=== PATIENT | male | born 1950 | race Caucasian/White ===

== ENCOUNTER 2022-06-18 16:18 | Inpatient (IN) | payer OTHER, MEDICAID ==
[~2022-06-18] VITALS: Ht 182.9 cm; Wt 86.2 kg
[2022-06-18 16:30] VITALS: BP_SYST 100
--- NOTE | 2022-06-18 16:35 | NUR ---
BIB BLS WITH C/C OF S/P MECHANICAL FALL AT NURSING STATION FROM [facility]. PT A/O X 2. INFORMED THAT ORIENTATION IS BASELINE. NAD NOTED. VSS, AFEBRILE.
--- NOTE | 2022-06-18 16:44 | NUR ---
DR. SALAS EXAMINED PT IN [facility].
[2022-06-18] MEDS ORDERED: NACL 0.9% 1,000 ML IV ONE (22:30)
[2022-06-18] MEDS ORDERED: DIPHTH,PERTUSS(ACELL),TET VAC 0.5 ML VIAL (Tdap) I.M. ONE (22:30)
[2022-06-18] MEDS ORDERED: LORazepam 2 MG/ML VIAL IVP ONE (23:00)
[2022-06-18 23:07] LABS: BASOPHILS # (AUTO) 0.1 K/uL (0.0-0.2); BASOPHILS % (AUTO) 1.1 % (0.0-2.0); EOSINOPHILS # (AUTO) 0.3 K/uL (0.0-0.4); EOSINOPHILS % (AUTO) 2.5 % (0.0-4.0); HEMATOCRIT 30.5 % (36-54); HEMOGLOBIN 9.7 g/dL (14.0-18.0); LYMPHOCYTES # (AUTO) 2.4 K/uL (1.0-5.5); LYMPHOCYTES % (AUTO) 19.3 % (20.5-51.5); MEAN CORPUSCULAR HEMOGLOBIN 22 pg (27-31); MEAN CORPUSCULAR HGB CONC 32 % (32-36); MEAN CORPUSCULAR VOLUME 69 fL (79.0-98.0); MONOCYTES # (AUTO) 1.3 K/uL (0.0-1.0); MONOCYTES % (AUTO) 10.2 % (1.7-9.3); NEUTROPHILS # (AUTO) 8.4 K/uL (1.8-7.7); NEUTROPHILS % (AUTO) 66.9 % (40.0-70.0); PLATELET COUNT (AUTO) 378 K/uL (130-430); RED BLOOD CELL COUNT(AUTO) 4.44 MIL/uL (4.2-6.2); RED CELL DISTRIBUTION WIDTH 16.4 % (9.0-15.0); WHITE BLOOD COUNT (AUTO) 12.6 K/uL (4.8-10.8)
[2022-06-18 23:33] LABS: ANION GAP 6 (5-15); CALCIUM 9.7 mg/dL (8.4-11.0); CHLORIDE 93 mmol/L (98-107); CREATININE 2.96 mg/dL (0.55-1.30); GLUCOSE 249 mg/dL (70-99); UREA NITROGEN, BLOOD 56 mg/dL (8-21)
[2022-06-18 23:45] LABS: ALANINE AMINOTRANSFERASE 27 U/L (12-78); ALBUMIN 3.4 g/dL (3.4-4.8); ASPARTATE AMINOTRANSFERASE 23 U/L (10-37); TOTAL BILIRUBIN 0.6 mg/dL (0.0-1.0)
[2022-06-18 23:53] LABS: GFR AFRICAN AMERICAN 27 mL/min (>90)
--- NOTE | 2022-06-19 00:15 | NUR ---
PT IS AA&OX1-2. PLACED IN BED 6. CONNECTED TO PATCHING MACHINE OPERATOR. NOTED W/ LACERATION ON R MID FOREHEAD. VSS. SEIZURE PRECAUTIONS IMPLEMENTED. SAFE & HAZARD FREE ENVIRONMENT PROVIDED.
--- NOTE | 2022-06-19 00:26 | NUR ---
# 20 gauge angiocath placed to LFA . Use of asceptic technique. Opsite placed over site. Blood return noted. Flushed with 10 cc of normal saline. No evidence of infiltration noted. Patient tolerated well.
--- NOTE | 2022-06-19 01:48 | NUR ---
COVID/INFLUENZA SWAB COLLECTED AND SENT TO LAB.
--- NOTE | 2022-06-19 04:13 | NUR ---
Admit bed requested Patient will be admitted to care of . Admitted to TELE unit. Diagnosis POSSIBLE NEW SEIZURE Inpatient Yes Observation No Orientation concerns or request close to nursing station No Covid Status NEG On vent or bipap NO Isolation requirements NO Needs a sitter NO From Home [facility] Requires Dialysis NO Med Rec Completed YES
[2022-06-19] MEDS ORDERED: EFF37 PO (04:25)
[2022-06-19] MEDS ORDERED: LINA5TAB2 PO (04:25)
[2022-06-19] MEDS ORDERED: NEU300 PO (04:25)
[2022-06-19] MEDS ORDERED: ASPI-1393 PO (04:25)
[2022-06-19] MEDS ORDERED: LIP20 PO (04:25)
[2022-06-19] MEDS ORDERED: NOR10 PO (04:25)
[2022-06-19] MEDS ORDERED: GLIP5TAB26 PO (04:25)
[2022-06-19] MEDS ORDERED: ARIP5TAB10 PO (04:25)
[2022-06-19] MEDS ORDERED: INSU100V11 SQ (04:25)
[2022-06-19] MEDS ORDERED: EPIN0.1519 IM (04:25)
[2022-06-19] MEDS ORDERED: SER100 PO (04:25)
[2022-06-19] MEDS ORDERED: MOME45CR17 TP (04:25)
--- NOTE | 2022-06-19 04:25 | NUR ---
Medication reconciliation completed with information provided by [facility]. Any prior medication reconciliation on file was reviewed and corrected.
--- NOTE | 2022-06-19 05:19 | NUR ---
Urine specimen collected and SENT TO LAB
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
[2022-06-19] MEDS ORDERED: 0.45% NACL 1,000 ML IV SCH (06:00)
--- NOTE | 2022-06-19 07:11 | NUR ---
REPORT GIVEN ISABELLE YANCEY TO ASSUME CARE.
--- NOTE | 2022-06-19 07:12 | NUR ---
Received report from ISABELLE Batista. Patient appears in no acute distress at this time, VSS. Care to be given as ordered by provider.
[2022-06-19 07:24] LABS: BILIRUBIN,URINE NEGATIVE (NEGATIVE); BLOOD, URINE 2+ (NEGATIVE); CLARITY/URINE TURBID (CLEAR); COLOR,URINE YELLOW (YELLOW); GLUCOSE,URINE 2+ (NEGATIVE); KETONES,URINE NEGATIVE (NEGATIVE); LEUKOCYTE ESTERASE ,URINE 3+ (NEGATIVE); NITRITE, URINE NEGATIVE (NEGATIVE); PROTEIN URINE 2+ (NEGATIVE); UROBILINOGEN,URINE 0.2 (0.2-1.0)
[2022-06-19 07:38] LABS: BACTERIA,URINE MANY /HPF (None Seen); RBC,URINE >100 /HPF (0-3); WBC,URINE >100 /HPF (0-3)
--- NOTE | 2022-06-19 12:35 | NUR ---
MRSA SWAB COLLECTED AND SENT TO LAB.
[2022-06-19] MEDS ORDERED: MOMETASONE FUROATE TP SCH (13:45)
[2022-06-19] MEDS ORDERED: ACETAMINOPHEN 325 MG TABLET PO PRN (14:00)
[2022-06-19] MEDS ORDERED: amLODIPine BESYLATE 10 MG TABLET PO ONE (15:30)
[2022-06-19] MEDS ORDERED: ASPIRIN 81 MG TABLET(ECOTRIN) PO ONE (15:30)
[2022-06-19] MEDS ORDERED: ARIPiprazole 5 MG TAB PO ONE (15:30)
[2022-06-19] MEDS: KCL 20 mEq in NS 1000 mL 1,000 ML IV SCH (15:39)
[2022-06-19 16:50] VITALS: BP_SYST 123
--- NOTE | 2022-06-19 16:50 | NUR ---
CONSULTATION PAGED REASON FOR CONSULTATION:SEIZURES WAS CONSULT CALLED?Y PERSON WHO WAS NOTIFIED:TEXT MESSAGED MARCIA OLGUIN CONSULTING PHYSICIAN:MARCIA OLGUIN JUSTICE [address] JUDGE SPECIALTY:NEURO [address]ICE [employer] JUDGE PHONE NUMBER:[phone] REQUESTING PHYSICIAN:AGNES MATSON
--- NOTE | 2022-06-19 16:58 | NUR ---
Patient will be admitted to care of DR. ALEGRE. Admitted to MST unit. Will go to room 116A. Belongings list completed. Complete and up to date summary report printed. SBAR report to be given at bedside with opportunity for questions.
[2022-06-19 17:00] VITALS: BP_SYST 123
--- NOTE | 2022-06-19 17:00 | NUR ---
ADMIT TO UNIT Patient admitted to Tele unit. Patient is ambulatory with assist. Aox2. Confused/ forgetful. No ss of distress noted. Breathing is even and nonlabored, on room air. No facial grimace noted. Patient has a bout of emesis upon arrival. Vital signs obtained, as documented. IV to L AC 20 G, patent. IVF running. Oriented patient to room and educated on fall precautions in safety. Bed is locked, alarm on, and at lowest position. Call light within reach.
[2022-06-19] MEDS: INSULIN REGULAR, HUMAN 100 UNITS/ML, 3 ML VIAL (humuLIN R) SUBCUT PRN ×2 (18:00→23:03)
[2022-06-19] MEDS ORDERED: ONDANSETRON HCL 4 MG/2 ML VIAL IVP PRN (18:30)
--- NOTE | 2022-06-19 19:39 | NUR ---
CLOSING NOTES PATIENT IS RESTING, IN BED, EYES CLOSED. NO SS OF DISTRESS NOTED. BREATHING IS EVEN AND NONLABORED, ON ROOM AIR. NO FACIAL GRIMACE NOTED. IV PATENT, IVF RUNNING. ALL NEEDS MET. BED IS LOCKED, ALARM ON, AND AT LOWEST POSITION. CALL LIGHT WITHIN REACH. REPORT GIVEN AT BEDSIDE TO ISBAELLE HOLLAND.
[2022-06-19 20:00] VITALS: BP_SYST 100
[2022-06-19] MEDS ORDERED: HALOPERIDOL LACTATE 5 MG/ML VIAL IM ONE (22:45)
[2022-06-19] MEDS: QUEtiapine FUMARATE 100 MG TABLET PO SCH (22:58)
[2022-06-19] MEDS: GABAPENTIN 300 MG CAPSULE PO SCH (22:58)
[2022-06-19] MEDS: ENOXAPARIN SODIUM 30 MG/0.3 ML SYRINGE SUBCUT SCH (22:59)
[2022-06-19] MEDS: INSULIN GLARGINE 100 UNITS/ML, 10 ML VIAL SQ SCH (23:01)
[2022-06-19] MEDS: PANTOPRAZOLE SODIUM 40 MG/VIAL (PROTONIX) IVP SCH (23:35)
[2022-06-20] VITALS: BP_SYST 114
--- NOTE | 2022-06-20 06:59 | NUR ---
PATIENT CURRENTLY IN BED RESTING. PATIENT HAD A FALL AT 2153, MD NOTIFIED, PERSON TO NOTIFY IN CHART WAS CALLED ANSWERING MACHINE OFFERED TO LEAVE A MESSAGE BUT DID NOT TAKE MESSAGE. THE MESSAGE ON THE MACHINE STATED THEY WERE AVAILABLE [phone]. PATIENT HAD NO NOTED INJURIES FROM FALL AND WENT TO BED THERE AFTER TAKING HIS HS MEDICATIONS.
[2022-06-20 07:00] LABS: BASOPHILS # (AUTO) 0.1 K/uL (0.0-0.2); BASOPHILS % (AUTO) 1.7 % (0.0-2.0); EOSINOPHILS # (AUTO) 0.5 K/uL (0.0-0.4); EOSINOPHILS % (AUTO) 6.5 % (0.0-4.0); HEMATOCRIT 27.6 % (36-54); HEMOGLOBIN 8.9 g/dL (14.0-18.0); LYMPHOCYTES # (AUTO) 2.6 K/uL (1.0-5.5); LYMPHOCYTES % (AUTO) 33.1 % (20.5-51.5); MEAN CORPUSCULAR HEMOGLOBIN 22 pg (27-31); MEAN CORPUSCULAR HGB CONC 32 % (32-36); MEAN CORPUSCULAR VOLUME 69 fL (79.0-98.0); MONOCYTES # (AUTO) 0.8 K/uL (0.0-1.0); MONOCYTES % (AUTO) 10.6 % (1.7-9.3); NEUTROPHILS # (AUTO) 3.8 K/uL (1.8-7.7); NEUTROPHILS % (AUTO) 48.1 % (40.0-70.0); PLATELET COUNT (AUTO) 344 K/uL (130-430); RED BLOOD CELL COUNT(AUTO) 3.99 MIL/uL (4.2-6.2); RED CELL DISTRIBUTION WIDTH 16.3 % (9.0-15.0); WHITE BLOOD COUNT (AUTO) 7.9 K/uL (4.8-10.8)
[2022-06-20 07:12] LABS: CALCIUM 8.9 mg/dL (8.4-11.0); CREATININE 1.88 mg/dL (0.55-1.30)
[2022-06-20 08:00] VITALS: BP_SYST 117
[2022-06-20] MEDS: PANTOPRAZOLE SODIUM 40 MG/VIAL (PROTONIX) IVP SCH ×2 (09:32→21:19)
[2022-06-20] MEDS: ARIPiprazole 5 MG TAB PO SCH (09:32)
[2022-06-20] MEDS: ATORVASTATIN 20 MG TABLET PO SCH (09:32)
[2022-06-20] MEDS: ASPIRIN 81 MG TABLET(ECOTRIN) PO SCH (09:32)
[2022-06-20] MEDS: GABAPENTIN 300 MG CAPSULE PO SCH ×3 (09:33→21:19)
[2022-06-20] MEDS: amLODIPine BESYLATE 10 MG TABLET PO SCH (09:33)
[2022-06-20] MEDS: INSULIN GLARGINE 100 UNITS/ML, 10 ML VIAL SQ SCH ×2 (09:39→21:24)
[2022-06-20] MEDS: Effexor 37.5 MG TAB PO SCH (09:50)
[2022-06-20 11:22] VITALS: BP_SYST 99
[2022-06-20] MEDS ORDERED: POTASSIUM CHLORIDE 20 MEQ/PKT PACKET PO ONE (12:30)
[2022-06-20] MEDS: INSULIN REGULAR, HUMAN 100 UNITS/ML, 3 ML VIAL (humuLIN R) SUBCUT PRN ×3 (12:55→21:25)
[2022-06-20] MEDS: KCL 20 mEq in NS 1000 mL 1,000 ML IV SCH (14:09)
[2022-06-20 18:16] VITALS: BP_SYST 95
[2022-06-20 20:00] VITALS: BP_SYST 122
[2022-06-20] MEDS: QUEtiapine FUMARATE 100 MG TABLET PO SCH (21:19)
[2022-06-20] MEDS: MEGESTROL ACETATE 400 MG/10 ML UDC PO SCH (21:19)
[2022-06-20] MEDS: ENOXAPARIN SODIUM 30 MG/0.3 ML SYRINGE SUBCUT SCH (21:19)
[2022-06-21] VITALS: BP_SYST 126
[2022-06-21] MEDS: KCL 20 mEq in NS 1000 mL 1,000 ML IV SCH ×3 (03:33→18:09)
[2022-06-21] MEDS: CEFEPIME 1 GM in D5W 50 ML IV SCH ×2 (03:34→18:09)
--- NOTE | 2022-06-21 04:17 | NUR ---
PATIENT IN BED RESTING, EYES CLOSED, NO S/S OF PAIN OR DISTRESS NOTED AT THIS TIME. PATIENT VSS, R FA 22G PIV INTACT AND PATENT. PATIENT RECEIVING IVF AND IV ABT. PATIENT TOOK AND TOLERATED ALL HS MEDS. PATIENT USES URINAL STANDING AT BEDSIDE. PATIENT HAS NOT TRIED TO AMB IN ROOM DURING THIS SHIFT WITHOUT ASSIST. PATIENT STATED HE FELT BETTER TODAY THAN YESTERDAY. PATIENT IS MORE ALERT AND ORIENTED TODAY THAN YESTERDAY. PATIENT WOULD ONLY ANSWER HIS NAME AND YESTERDAY AND TODAY HE HAS ATTEMPTED TO VERBALIZED WHERE HE IS AND THE DATE.
[2022-06-21 06:52] LABS: BASOPHILS # (AUTO) 0.1 K/uL (0.0-0.2); BASOPHILS % (AUTO) 1.4 % (0.0-2.0); EOSINOPHILS # (AUTO) 0.4 K/uL (0.0-0.4); EOSINOPHILS % (AUTO) 5.8 % (0.0-4.0); HEMATOCRIT 26.8 % (36-54); HEMOGLOBIN 8.6 g/dL (14.0-18.0); LYMPHOCYTES # (AUTO) 1.7 K/uL (1.0-5.5); LYMPHOCYTES % (AUTO) 26.4 % (20.5-51.5); MEAN CORPUSCULAR HEMOGLOBIN 22 pg (27-31); MEAN CORPUSCULAR HGB CONC 32 % (32-36); MEAN CORPUSCULAR VOLUME 70 fL (79.0-98.0); MONOCYTES # (AUTO) 0.6 K/uL (0.0-1.0); MONOCYTES % (AUTO) 9.9 % (1.7-9.3); NEUTROPHILS # (AUTO) 3.7 K/uL (1.8-7.7); NEUTROPHILS % (AUTO) 56.5 % (40.0-70.0); PLATELET COUNT (AUTO) 292 K/uL (130-430); RED BLOOD CELL COUNT(AUTO) 3.84 MIL/uL (4.2-6.2); RED CELL DISTRIBUTION WIDTH 16.1 % (9.0-15.0); WHITE BLOOD COUNT (AUTO) 6.5 K/uL (4.8-10.8)
[2022-06-21 06:56] LABS: CALCIUM 8.6 mg/dL (8.4-11.0); CREATININE 1.63 mg/dL (0.55-1.30)
--- NOTE | 2022-06-21 07:07 | NUR ---
PATIENT IN BED RESTING. PATIENT HAS BEEN NPO SINCE MIDNIGHT FOR ABD US PER PREVIOUS NURSE REPORT. PATIENT BS 170 THIS MORNING, NO INSULIN COVERAGE GIVEN AT THIS TIME PATIENT IS NPO. THIS NURSE TO ENDORSE TO ON COMING NURSE.
[2022-06-21 08:00] VITALS: BP_SYST 127
--- NOTE | 2022-06-21 08:00 | NUR ---
AM NOTES KEPT NPO FOR ABDOMINAL ULTRASOUND TODAY, PATIENT VERY COOPERATIVE TO STAFF, RISK FOR FALL, KEPT A SAFE ENVIRONMENT TO PATIENT.
--- NOTE | 2022-06-21 10:00 | NUR ---
NOTES EEG AND ABDOMINAL ULTRASOUND DONE.
[2022-06-21] MEDS: MEGESTROL ACETATE 400 MG/10 ML UDC PO SCH ×2 (10:42→20:57)
[2022-06-21] MEDS: ASPIRIN 81 MG TABLET(ECOTRIN) PO SCH (10:43)
[2022-06-21] MEDS: GABAPENTIN 300 MG CAPSULE PO SCH ×3 (10:43→20:57)
[2022-06-21] MEDS: Effexor 37.5 MG TAB PO SCH (10:43)
[2022-06-21] MEDS: PANTOPRAZOLE SODIUM 40 MG/VIAL (PROTONIX) IVP SCH ×2 (10:46→20:58)
[2022-06-21] MEDS: ATORVASTATIN 20 MG TABLET PO SCH (10:47)
[2022-06-21] MEDS: INSULIN GLARGINE 100 UNITS/ML, 10 ML VIAL SQ SCH ×2 (10:50→21:16)
[2022-06-21] MEDS: amLODIPine BESYLATE 10 MG TABLET PO SCH (10:52)
[2022-06-21] MEDS: ARIPiprazole 5 MG TAB PO SCH (10:53)
[2022-06-21 11:52] VITALS: BP_SYST 115
--- NOTE | 2022-06-21 12:23 | NUR ---
Report received from ISABELLE Tineo for continuity of care. Patient stable condition.
--- NOTE | 2022-06-21 13:00 | NUR ---
NOTES REPORT GIVEN TO DIONNA FOR CONTINUATION OF CARE.
[2022-06-21 15:39] VITALS: BP_SYST 117
[2022-06-21] MEDS ORDERED: MECLIZINE HCL 25 MG TABLET (ANITVERT) PO ONE (17:45)
[2022-06-21] MEDS: FLUCONAZOLE 200 mg/ NS 100 ML IV SCH (18:33)
[2022-06-21] MEDS: INSULIN REGULAR, HUMAN 100 UNITS/ML, 3 ML VIAL (humuLIN R) SUBCUT PRN ×2 (18:40→21:17)
--- NOTE | 2022-06-21 19:47 | NUR ---
Patient stable throughout the shift. Report given to cnc machinist 2nd shift RN for continuity of care. Patient stable.
[2022-06-21 20:00] VITALS: BP_SYST 112
[2022-06-21] MEDS: MECLIZINE HCL 25 MG TABLET (ANITVERT) PO SCH (20:57)
[2022-06-21] MEDS: ENOXAPARIN SODIUM 30 MG/0.3 ML SYRINGE SUBCUT SCH (20:58)
[2022-06-21] MEDS: QUEtiapine FUMARATE 100 MG TABLET PO SCH (20:58)
[2022-06-22] VITALS: BP_SYST 124
[2022-06-22] MEDS: CEFEPIME 1 GM in D5W 50 ML IV SCH ×2 (03:07→17:43)
[2022-06-22] MEDS: INSULIN REGULAR, HUMAN 100 UNITS/ML, 3 ML VIAL (humuLIN R) SUBCUT PRN ×3 (06:49→21:29)
--- NOTE | 2022-06-22 08:18 | NUR ---
opening note received bedside sbar from PM shift nurse, patient stable no distress bed at low position call light in reach will cont to monitor as per orders.
[2022-06-22 09:02] VITALS: BP_SYST 108
[2022-06-22] MEDS: MEGESTROL ACETATE 400 MG/10 ML UDC PO SCH ×2 (10:38→21:19)
[2022-06-22] MEDS: ATORVASTATIN 20 MG TABLET PO SCH (10:38)
[2022-06-22] MEDS: Effexor 37.5 MG TAB PO SCH (10:38)
[2022-06-22] MEDS: GABAPENTIN 300 MG CAPSULE PO SCH ×3 (10:39→21:19)
[2022-06-22] MEDS: ARIPiprazole 5 MG TAB PO SCH (10:39)
[2022-06-22] MEDS: MECLIZINE HCL 25 MG TABLET (ANITVERT) PO SCH ×3 (10:39→21:19)
[2022-06-22] MEDS: ASPIRIN 81 MG TABLET(ECOTRIN) PO SCH (10:39)
[2022-06-22] MEDS: amLODIPine BESYLATE 10 MG TABLET PO SCH (10:40)
[2022-06-22] MEDS: INSULIN GLARGINE 100 UNITS/ML, 10 ML VIAL SQ SCH ×2 (10:49→21:26)
[2022-06-22] MEDS: KCL 20 mEq in NS 1000 mL 1,000 ML IV SCH (10:52)
--- NOTE | 2022-06-22 11:12 | NUR ---
Discharge Planning: [phone] DCP to follow up
[2022-06-22 12:00] VITALS: BP_SYST 115
[2022-06-22] MEDS: PANTOPRAZOLE SODIUM 40 MG/VIAL (PROTONIX) IVP SCH ×2 (12:56→21:20)
--- NOTE | 2022-06-22 13:11 | NUR ---
PATIENT REQUESTING DOUBLE FOOD PORTIONS WILL CALL DR BOBO
[2022-06-22 16:00] VITALS: BP_SYST 114
[2022-06-22] MEDS: FLUCONAZOLE 200 mg/ NS 100 ML IV SCH (17:38)
[2022-06-22 20:00] VITALS: BP_SYST 121
[2022-06-22] MEDS: ENOXAPARIN SODIUM 30 MG/0.3 ML SYRINGE SUBCUT SCH (21:19)
[2022-06-22] MEDS: QUEtiapine FUMARATE 100 MG TABLET PO SCH (21:19)
[2022-06-22 22:40] VITALS: BP_SYST 130
[2022-06-23] VITALS: BP_SYST 130
[2022-06-23] MEDS: KCL 20 mEq in NS 1000 mL 1,000 ML IV SCH (03:30)
[2022-06-23] MEDS: CEFEPIME 1 GM in D5W 50 ML IV SCH ×2 (03:30→14:40)
[2022-06-23] MEDS: INSULIN REGULAR, HUMAN 100 UNITS/ML, 3 ML VIAL (humuLIN R) SUBCUT PRN ×4 (06:22→21:43)
[2022-06-23 07:54] LABS: CALCIUM 8.6 mg/dL (8.4-11.0); CREATININE 1.48 mg/dL (0.55-1.30)
[2022-06-23 08:01] LABS: TOTAL IRON BIND. CAPACITY 340 ug/dL (250-450)
[2022-06-23 08:20] LABS: BASOPHILS # (AUTO) 0.1 K/uL (0.0-0.2); BASOPHILS % (AUTO) 1.1 % (0.0-2.0); EOSINOPHILS # (AUTO) 0.1 K/uL (0.0-0.4); EOSINOPHILS % (AUTO) 1.9 % (0.0-4.0); HEMOGLOBIN 8.6 g/dL (14.0-18.0); LYMPHOCYTES % (AUTO) 33.6 % (20.5-51.5); MEAN CORPUSCULAR HEMOGLOBIN 22 pg (27-31); MEAN CORPUSCULAR HGB CONC 32 % (32-36); MEAN CORPUSCULAR VOLUME 70 fL (79.0-98.0); MONOCYTES # (AUTO) 0.6 K/uL (0.0-1.0); MONOCYTES % (AUTO) 9.6 % (1.7-9.3); NEUTROPHILS # (AUTO) 3.2 K/uL (1.8-7.7); NEUTROPHILS % (AUTO) 53.8 % (40.0-70.0); PLATELET COUNT (AUTO) 307 K/uL (130-430); RED BLOOD CELL COUNT(AUTO) 3.86 MIL/uL (4.2-6.2)
[2022-06-23] MEDS: ARIPiprazole 5 MG TAB PO SCH (09:05)
[2022-06-23] MEDS: Effexor 37.5 MG TAB PO SCH (09:05)
[2022-06-23] MEDS: MECLIZINE HCL 25 MG TABLET (ANITVERT) PO SCH ×3 (09:05→21:39)
[2022-06-23] MEDS: GABAPENTIN 300 MG CAPSULE PO SCH ×3 (09:05→21:40)
[2022-06-23] MEDS: ASPIRIN 81 MG TABLET(ECOTRIN) PO SCH (09:06)
[2022-06-23] MEDS: MEGESTROL ACETATE 400 MG/10 ML UDC PO SCH ×2 (09:06→21:40)
[2022-06-23] MEDS: amLODIPine BESYLATE 10 MG TABLET PO SCH (09:06)
[2022-06-23] MEDS: PANTOPRAZOLE SODIUM 40 MG/VIAL (PROTONIX) IVP SCH ×2 (09:06→21:40)
[2022-06-23] MEDS: ATORVASTATIN 20 MG TABLET PO SCH (09:06)
[2022-06-23] MEDS: INSULIN GLARGINE 100 UNITS/ML, 10 ML VIAL SQ SCH ×2 (09:13→21:42)
[2022-06-23 09:43] LABS: RED CELL DISTRIBUTION WIDTH 16.3 % (9.0-15.0)
[2022-06-23 12:00] VITALS: BP_SYST 136
[2022-06-23 16:00] VITALS: BP_SYST 143
[2022-06-23] MEDS: FLUCONAZOLE 200 mg/ NS 100 ML IV SCH (18:28)
[2022-06-23 20:00] VITALS: BP_SYST 154
[2022-06-23] MEDS: QUEtiapine FUMARATE 100 MG TABLET PO SCH (21:40)
[2022-06-23] MEDS: ENOXAPARIN SODIUM 30 MG/0.3 ML SYRINGE SUBCUT SCH (21:49)
[2022-06-24 01:00] VITALS: BP_SYST 115
[2022-06-24] MEDS: CEFEPIME 1 GM in D5W 50 ML IV SCH ×2 (05:22→15:54)
[2022-06-24] MEDS: INSULIN REGULAR, HUMAN 100 UNITS/ML, 3 ML VIAL (humuLIN R) SUBCUT PRN ×4 (06:26→21:19)
[2022-06-24 08:00] VITALS: BP_SYST 129
--- NOTE | 2022-06-24 08:00 | NUR ---
RECEIVED PATIENT FROM PM NURSE, ALERT AND ORIENTED, ABLE TO VERBALIZE NEEDS, NO C/O PAIN OR DISCOMFORT, WILL ASSUME ALL CARE OF PATIENT AT THIS TIME
[2022-06-24 08:21] LABS: CALCIUM 8.8 mg/dL (8.4-11.0); CREATININE 1.57 mg/dL (0.55-1.30)
[2022-06-24 08:30] LABS: BASOPHILS # (AUTO) 0.1 K/uL (0.0-0.2); BASOPHILS % (AUTO) 1.1 % (0.0-2.0); EOSINOPHILS # (AUTO) 0.1 K/uL (0.0-0.4); EOSINOPHILS % (AUTO) 1.7 % (0.0-4.0); HEMATOCRIT 27.4 % (36-54); HEMOGLOBIN 8.8 g/dL (14.0-18.0); LYMPHOCYTES # (AUTO) 2.1 K/uL (1.0-5.5); LYMPHOCYTES % (AUTO) 30.2 % (20.5-51.5); MEAN CORPUSCULAR HEMOGLOBIN 22 pg (27-31); MEAN CORPUSCULAR HGB CONC 32 % (32-36); MEAN CORPUSCULAR VOLUME 69 fL (79.0-98.0); MONOCYTES # (AUTO) 0.7 K/uL (0.0-1.0); MONOCYTES % (AUTO) 9.7 % (1.7-9.3); NEUTROPHILS # (AUTO) 3.9 K/uL (1.8-7.7); NEUTROPHILS % (AUTO) 57.3 % (40.0-70.0); PLATELET COUNT (AUTO) 330 K/uL (130-430); RED BLOOD CELL COUNT(AUTO) 3.96 MIL/uL (4.2-6.2); RED CELL DISTRIBUTION WIDTH 16.4 % (9.0-15.0); WHITE BLOOD COUNT (AUTO) 6.8 K/uL (4.8-10.8)
[2022-06-24] MEDS: Effexor 37.5 MG TAB PO SCH (09:41)
[2022-06-24] MEDS: GABAPENTIN 300 MG CAPSULE PO SCH ×3 (09:42→21:13)
[2022-06-24] MEDS: ASPIRIN 81 MG TABLET(ECOTRIN) PO SCH (09:42)
[2022-06-24] MEDS: ATORVASTATIN 20 MG TABLET PO SCH (09:42)
[2022-06-24] MEDS: ARIPiprazole 5 MG TAB PO SCH (09:43)
[2022-06-24] MEDS: MECLIZINE HCL 25 MG TABLET (ANITVERT) PO SCH ×3 (09:43→21:13)
[2022-06-24] MEDS: PANTOPRAZOLE SODIUM 40 MG/VIAL (PROTONIX) IVP SCH ×2 (09:43→21:14)
[2022-06-24] MEDS: amLODIPine BESYLATE 10 MG TABLET PO SCH (09:43)
[2022-06-24] MEDS: INSULIN GLARGINE 100 UNITS/ML, 10 ML VIAL SQ SCH ×2 (09:52→21:22)
[2022-06-24] MEDS: MEGESTROL ACETATE 400 MG/10 ML UDC PO SCH ×2 (09:59→21:13)
[2022-06-24 12:00] VITALS: BP_SYST 130
[2022-06-24] MEDS: FLUCONAZOLE 200 mg/ NS 100 ML IV SCH (17:24)
[2022-06-24 18:16] VITALS: BP_SYST 132
[2022-06-24 20:00] VITALS: BP_SYST 159
[2022-06-24] MEDS ORDERED: SODIUM POLYSTYRENE SULFONATE 15 GM/60 ML UDBTL PO ONE (20:45)
[2022-06-24] MEDS: QUEtiapine FUMARATE 100 MG TABLET PO SCH (21:13)
[2022-06-24] MEDS: ENOXAPARIN SODIUM 30 MG/0.3 ML SYRINGE SUBCUT SCH (21:28)
[2022-06-24] MEDS: NACL 0.9% 1,000 ML IV SCH (21:36)
[2022-06-25 01:30] VITALS: BP_SYST 128
[2022-06-25] MEDS: CEFEPIME 1 GM in D5W 50 ML IV SCH ×2 (05:35→16:00)
[2022-06-25] MEDS: INSULIN REGULAR, HUMAN 100 UNITS/ML, 3 ML VIAL (humuLIN R) SUBCUT PRN ×3 (06:33→16:17)
[2022-06-25 08:31] LABS: CALCIUM 8.7 mg/dL (8.4-11.0); CREATININE 1.56 mg/dL (0.55-1.30)
[2022-06-25] MEDS: amLODIPine BESYLATE 10 MG TABLET PO SCH (09:00)
[2022-06-25] MEDS: ARIPiprazole 5 MG TAB PO SCH (09:02)
[2022-06-25] MEDS: ASPIRIN 81 MG TABLET(ECOTRIN) PO SCH (09:03)
[2022-06-25] MEDS: GABAPENTIN 300 MG CAPSULE PO SCH ×2 (09:03→16:00)
[2022-06-25] MEDS: MEGESTROL ACETATE 400 MG/10 ML UDC PO SCH (09:03)
[2022-06-25] MEDS: ATORVASTATIN 20 MG TABLET PO SCH (09:03)
[2022-06-25] MEDS: Effexor 37.5 MG TAB PO SCH (09:04)
[2022-06-25] MEDS: MECLIZINE HCL 25 MG TABLET (ANITVERT) PO SCH ×2 (09:04→15:59)
[2022-06-25 09:06] LABS: FOLATE (FOLIC ACID) 9.5 ng/mL (>3.0)
[2022-06-25] MEDS: PANTOPRAZOLE SODIUM 40 MG/VIAL (PROTONIX) IVP SCH (09:10)
[2022-06-25] MEDS: INSULIN GLARGINE 100 UNITS/ML, 10 ML VIAL SQ SCH (09:25)
[2022-06-25 11:59] VITALS: BP_SYST 143
[2022-06-25] MEDS: NACL 0.9% 1,000 ML IV SCH (12:37)
--- NOTE | 2022-06-25 15:18 | NUR ---
Discharge Planning: AMINAHP arranged transport with [facility] [phone] BLS 7:30pm to [facility] [phone] RM [id number]. AMINAHP made CM and nurse aware.
[2022-06-25 17:09] VITALS: BP_SYST 113
[2022-06-25 18:38] VITALS: BP_SYST 116
--- NOTE | 2022-06-25 19:37 | NUR ---
[facility], report given to receiving rn, iv dc with cath intact, education provided to patient, transported via bls, no other needs at this time
== END 2022-06-25 19:35 | DRG 689 ==
LOC: SED 16:18 → STU 06-19 04:08 → SMU 06-23 06:24
PROVIDERS: ADMIT Family Medicine; ATTEND Family Medicine
PROC: 4A00X4Z Measurement of Central Nervous Electrical Activity, External Approach (ICD-10-PCS; principal; 2022-06-21)
DX: N39.0 Urinary tract infection, site not specified (principal); G93.41 Metabolic encephalopathy; N17.9 Acute kidney failure, unspecified; E86.0 Dehydration; R29.6 Repeated falls; E78.5 Hyperlipidemia, unspecified; F03.90 Unspecified dementia, unspecified severity, without behavioral disturbance, psychotic disturbance, mood disturbance, and anxiety; E11.9 Type 2 diabetes mellitus without complications; I10 Essential (primary) hypertension
CPT/HCPCS: 36415; 70450-TC; 70551; 71045; 76376; 76700-TC; 78579; 78580-TC; 80048; 80053; 81000; 82607; 82728; 82746; 82962; 83540; 83550; 83735; 84484; 85025; 85379; 87081; 87086; 90715; 93005; 95816; 96361; 96374; 96375; 99291; 99292; A9539; A9540; C9113; G0378; J0692; J1450; J1650; J1815; J2060; J3480; J7040; J7060; J8597